=== PATIENT | male | born 1975 | race Caucasian/White ===

== ENCOUNTER 2018-05-08 13:16 | Emergency (ER) | payer OTHER ==
[~2018-05-08] VITALS: Ht 182.9 cm; Wt 76.2 kg
[2018-05-08] MEDS ORDERED: HYDROCODONE/APAP 7.5MG-325MG 1 EA TAB PO ONE (13:30)
--- NOTE | 2018-05-08 14:24 | Diagnostic Imaging Report ---
WRIST COMPLETE LEFT - 3 views HISTORY: Fall. COMPARISON: None available. FINDINGS: Bones: No acute displaced fracture. Osseous alignment is within normal limits. Joints: The joint spaces are well-maintained. Soft tissues: The soft tissues appear unremarkable. IMPRESSION: No acute fracture or dislocation of the left wrist. Signed by: Dr. Raf Clemente MD on 05/08/2018 2:21 PM
--- NOTE | 2018-05-08 14:26 | Diagnostic Imaging Report ---
HAND 3+ VIEWS LEFT - 3 views HISTORY: Pain after fall. COMPARISON: None available. FINDINGS: Bones: No acute displaced fracture. Osseous alignment is within normal limits. Joints: The joint spaces are well-maintained. Soft tissues: The soft tissues appear unremarkable. IMPRESSION: No acute fracture or dislocation of the left hand. Signed by: Dr. Raf Clemente MD on 05/08/2018 2:23 PM
[2018-05-08 14:36] VITALS: BP 140/96
== END 2018-05-08 14:43 | disposition home or self-care (01) ==
LOC: ER 13:16
DX: S60.212A Contusion of left wrist, initial encounter (principal); S60.222A Contusion of left hand, initial encounter; W18.39XA Other fall on same level, initial encounter; Y99.0 Civilian activity done for income or pay; F17.210 Nicotine dependence, cigarettes, uncomplicated
CPT/HCPCS: 99283